=== PATIENT | male | born 1965 | race Caucasian/White ===

== ENCOUNTER 2020-05-03 14:45 | Outpatient (RCR) | payer BC, OTHER ==
[2020-07-06] MEDS ORDERED: MULT-1104 PO (13:26)
[2020-07-06] MEDS ORDERED: ZINC50TA11 PO (13:26)
[2020-07-12] MEDS ORDERED: ACET1TAB43 PO (09:30)
[2020-07-12] MEDS ORDERED: CIPR-226 PO (09:30)
== END 2020-08-01 | disposition home or self-care (01) ==
LOC: ONC 14:45
PROVIDERS: ATTEND Radiology Radiation Oncology
DX: C61 Malignant neoplasm of prostate (principal); F17.210 Nicotine dependence, cigarettes, uncomplicated; Z80.42 Family history of malignant neoplasm of prostate
CPT/HCPCS: 76873; G0463; 99205

== ENCOUNTER 2020-07-10 05:34 | Outpatient (RCR) | payer BC ==
[~2020-07-10] VITALS: Ht 188 cm; Wt 108.6 kg
[~2020-07-10 05:34] MED LIST: MULT-1104 PO; ZINC50TA11 PO
== END 2020-07-10 09:51 | disposition home or self-care (01) ==
LOC: PREOP 05:34
PROVIDERS: ATTEND Radiology Radiation Oncology
DX: Z01.812 Encounter for preprocedural laboratory examination (principal); Z20.828 Contact with and (suspected) exposure to other viral communicable diseases
CPT/HCPCS: 87635

== ENCOUNTER 2020-07-12 09:16 | Day surgery (SDC) | payer BC, OTHER ==
[2020-07-12] VITALS (11 sets, daily range): BP systolic 111–143; BP diastolic 66–100
[~2020-07-12] VITALS: Ht 188 cm; Wt 108.6 kg
--- NOTE | 2020-07-12 09:23 | Progress Note-Pre Operative ---
Pre-Operative Progress Note H&P Reviewed The H&P was reviewed, patient examined and no changes noted. Date Seen by Provider: Jul 12, 2020 Time Seen by Provider: : Date H&P Reviewed: Jul 12, 2020 Time H&P Reviewed: : Pre-Operative Diagnosis: Prostate cancer cT1c, PSA 4.8, [place] 6 ELEONORA PAGAN MD Jul 12, 2020 09:23
[2020-07-12] MEDS ORDERED: ACET1TAB43 PO (09:30)
[2020-07-12] MEDS ORDERED: CIPR-226 PO (09:30)
--- NOTE | 2020-07-12 09:33 | Discharge Inst-Simple/Standard ---
Discharge Inst-Standard Reconcile Patient Problems Problems Reviewed?: Yes Discharge Medications New, Converted or Re-Newed RX: RX Given to Pt/Family Patient Instructions/Follow Up Plan of Care/Instructions/FU: 1)One month follow up with Dr. Gloria 08/07/20 at 1:30 pm 2)One month post implant scan at [facility] cancer center 08/08 at 10:00 am Activity as Tolerated: Yes Discharge Diet: No Restrictions Other Inst to Patient Please instruct patient on le catheter removal for morning of Friday07/17/20. ELEONORA PAGAN MD Jul 12, 2020 09:33
[2020-07-12] MEDS ORDERED: LACTATED RINGERS 1,000 ML IV PRN (09:59)
[2020-07-12] MEDS ORDERED: LEVOFLOXACIN 500 MG/100 ML IV 100 ML IV ONE (10:00)
[2020-07-12] MEDS ORDERED: MIDAZOLAM 2 MG/2 ML (VERSED) VIAL ONE (10:42)
[2020-07-12] MEDS ORDERED: proPOfol 200 MG/20 ML (DIPRIVAN) VIAL IV ONE (10:42)
[2020-07-12] MEDS ORDERED: ONDANSETRON 4 MG/2 ML (SDV) Z0FRAN ONE (10:42)
[2020-07-12] MEDS ORDERED: LIDOCAINE PF 2% 5 ML (XYLOCAINE) VIAL ONE (10:42)
[2020-07-12] MEDS ORDERED: SEVOFLURANE (ULTANE) 15 ML INHAL SOLN ONE ×4 (10:42→11:58)
[2020-07-12] MEDS ORDERED: fentaNYL INJECTION 100 MCG/2 ML AMP ONE (10:43)
[2020-07-12] MEDS ORDERED: BACITRACIN OINTMENT 28 GM TUBE ONE (10:55)
[2020-07-12] MEDS ORDERED: IOPAMIDOL 61% 30 ML (ISOVUE 300) VIAL ONE (10:55)
[2020-07-12] MEDS ORDERED: morphine INJ 10 MG/ML 1ML (SYR OR VIAL) IVP ONE (12:15)
[2020-07-12] MEDS ORDERED: MEPERIDINE (DEMEROL) INJ 50 MG/ML IVP ONE (12:15)
[2020-07-12] MEDS ORDERED: ONDANSETRON 4 MG/2 ML (SDV) Z0FRAN IVP PRN (12:15)
--- NOTE | 2020-07-12 12:32 | Diagnostic Imaging Report ---
INDICATION: Fluoroscopy for brachytherapy. Fluoroscopy was provided during prostate brachytherapy. 10 seconds of fluoroscopic time was utilized. A single image was obtained demonstrating multiple radiation seed implants within the prostate gland. There is contrast within the urinary bladder. IMPRESSION: Fluoroscopy during prostate brachytherapy. Dictated by: Dictated on workstation # [id number]
--- NOTE | 2020-07-12 12:54 | Progress Note-Post Operative ---
Post-Operative Progess Note Surgeon (s)/[employer] (s) Surgeon ELEONORA PAGAN MD [employer]: Jaspal TURPIN MD Pre-Operative Diagnosis Prostate cancer cT1c, PSA 4.8, [place] 6 Post-Operative Diagnosis Same as preop Procedure & Operative Findings Date of Procedure 07/12/20 Procedure Performed/Findings (1) 100% Cesium 131 permanent prostate seed implant (2) Injection of biodegradable hydrogel prostate-rectal spacer utilizing the SpaceOAR system (3) Cystogram Prostate volume 23.9 cc Anesthesia Type General Estimated Blood Loss Estimated blood loss (mL): Minimal Specimens/Packing Specimens Removed N/A Packing: N/A ELEONORA PAGAN MD Jul 12, 2020 12:53
--- NOTE | 2020-07-12 13:24 | Anesthesia-General Post-Op ---
General Patient Condition Mental Status/LOC: Same as Preop Cardiovascular: Satisfactory Nausea/Vomiting: Absent Respiratory: Satisfactory Pain: Controlled Complications: Absent Post Op Complications Complications None Follow Up Care/Instructions Patient Instructions None needed. Anesthesia/Patient Condition Patient Condition Patient is doing well, no complaints, stable vital signs, no apparent adverse anesthesia problems. No complications reported per nursing. ELLIE ELLISON CRNA Jul 12, 2020 13:24
[2020-07-12] MEDS ORDERED: APAP 300 MG/CODEINE 30 MG (TYLENOL #3) TAB ONE (13:31)
[2020-07-12] MEDS ORDERED: APAP 300 MG/CODEINE 30 MG (TYLENOL #3) TAB PO ONE (13:45)
== END 2020-07-12 14:02 | disposition home or self-care (01) ==
LOC: SDC 09:16
PROVIDERS: ATTEND Radiology Radiation Oncology
DX: C61 Malignant neoplasm of prostate (principal); Z85.89 Personal history of malignant neoplasm of other organs and systems; Z85.46 Personal history of malignant neoplasm of prostate
CPT/HCPCS: 55874; 76000; 76965; 77290; 77318; 77332; 77370; 77470; 77778; 87081; C1715 ×2; C2643

== ENCOUNTER 2020-08-08 10:08 | Outpatient (RCR) | payer BC ==
[~2020-08-08 10:08] MED LIST changes: +ACET1TAB43 PO; +CIPR-226 PO
== END 2020-11-06 | disposition home or self-care (01) ==
LOC: ONC 10:08
PROVIDERS: ATTEND Radiology Radiation Oncology
DX: Z51.0 Encounter for antineoplastic radiation therapy (principal); C61 Malignant neoplasm of prostate
CPT/HCPCS: 77290; 77295

== ENCOUNTER 2021-01-11 09:44 | Outpatient (RCR) | payer BC | END 2021-04-11 | disposition home or self-care (01) | LOC: ONC 09:44 | PROVIDERS: ATTEND Radiology Radiation Oncology | DX: C61 Malignant neoplasm of prostate (principal); Z80.42 Family history of malignant neoplasm of prostate; Z92.3 Personal history of irradiation | CPT/HCPCS: 84153; G0463; 99213 ==